=== PATIENT | female | born 1965 | race Caucasian/White ===

== ENCOUNTER 2020-10-24 08:00 | Outpatient (CLI) | payer OTHER, SELFPAY ==
[2020-10-24 12:34] VITALS: BMI 38.2
[2020-10-24 12:52] VITALS: BP 117/60; PULSE 72; RESP 14; TEMP 36.3; O2SAT 97
[2020-10-24] MEDS: FAMOTIDINE 20 MG TABLET PO (12:53)
[2020-10-24] MEDS: diphenhydrAMINE HCl CAP 25 MG CAPSULE PO (12:54)
[2020-10-24] MEDS: ACETAMINOPHEN 325 MG TABLET 650 MG PO (12:54)
--- NOTE | 2020-10-24 13:55 | PC.NURSE ---
Patient here for IV Casirivimab and IV Imdevimab infusion r/t + covid and met high risk criteria. Permit signed. Education on medication given. NO concerns. Premeds given and IV Casirivimab and Imdevimab administered SEE APR. Tolerated well. No S/SX of IV medication reaction noted or reported. Observed shortly afterwards. DC to home-save exit of hospital.
[2020-10-24 13:59] VITALS: BP 110/69; PULSE 68; RESP 16; TEMP 37.2; O2SAT 97
== END 2020-10-24 08:01 | disposition home or self-care (01) ==
PROVIDERS: PCP Internal Medicine; Visit Provider Internal Medicine
DX: Z23 Encounter for immunization (principal); U07.1 COVID-19
CPT/HCPCS: A9270; J7050; M0243

== ENCOUNTER 2023-03-28 15:45 | Outpatient (CLI) | payer MEDICARE, OTHER, SELFPAY ==
[2023-03-28 16:05] LABS: Basophils Absolute Auto 0.06 K/mm3 (0.00-0.10); Basophils Percent Auto 0.8 % (0.0-1.0); Eosinophils Absolute Auto 0.04 K/mm3 (0.02-0.50); Eosinophils Percent Auto 0.5 % (1.0-6.0); Hematocrit 39.8 % (35.0-49.0); Immature Granulocyte Absolute 0.05 K/mm3 (0.00-0.00); Immature Granulocyte Percent A 0.7 % (0.0-0.0); Lymphocytes Absolute Auto 1.03 K/mm3 (1.10-4.50); Lymphocytes Percent Auto 13.8 % (18.0-42.0); Mean Corpuscular HGB Conc 32.7 g/dL (32.0-36.0); Mean Corpuscular Hemoglobin 31.1 pg (27.0-31.0); Mean Corpuscular Volume 95.2 fL (78.0-102.0); Mean Platelet Volume 9.3 fl (9.2-11.8); Monocytes Absolute Auto 0.49 K/mm3 (0.10-0.90); Monocytes Percent Auto 6.6 % (2.0-11.0); Neutrophils Absolute Auto 5.8 K/mm3 (1.7-7.2); Neutrophils Percent Auto 77.6 % (50.0-70.0); Platelet Count Result 278 K/mm3 (150-420); Red Blood Count 4.18 M/mm3 (4.20-5.40); Red Cell Distribution Width 14.1 % (11.6-14.4); White Blood Count 7.4 K/mm3 (4.8-10.8)
[2023-03-28 16:27] LABS: Alanine Aminotransferase 35 U/L (14-59); Albumin Level 3.5 g/dL (3.4-5.0); Alkaline Phosphatase 78 U/L (46-116); Anion Gap 9 mmol/L (8-16); Aspartate Amino Transferase 16 U/L (15-37); Bilirubin,Total 0.3 mg/dL (0.00-1.00); Blood Urea Nitrogen 28 mg/dL (7-18); CRP 1.8 mg/dL (0.0-0.9); Calcium 9.1 mg/dL (8.5-10.1); Carbon Dioxide 31 mmol/L (21-32); Chloride 103 mmol/L (98-108); Creatine Kinase 50 U/L (26-192); Estimated Glomerular Filt Rate 47; Glucose 94 mg/dL (70-99); Osmolality Calculated 301 mOsm/kg (285-295); Phosphorus 3.4 mg/dL (2.6-4.7); Potassium 4.6 mmol/L (3.5-5.1); Sodium 143 mmol/L (136-145); Total Protein 6.7 g/dL (6.4-8.2)
== END 2023-03-28 15:46 | disposition home or self-care (01) ==
PROVIDERS: PCP Internal Medicine; Visit Provider Internal Medicine
DX: M06.00 Rheumatoid arthritis without rheumatoid factor, unspecified site (principal); M15.9 Polyosteoarthritis, unspecified
CPT/HCPCS: 36415; 80053; 82085; 82550; 83735; 84100; 85025; 86140

== ENCOUNTER 2024-11-28 11:00 | Outpatient (RCR) | payer MEDICARE, OTHER, SELFPAY ==
--- NOTE | 2024-10-15 12:13 | OPREHPOC ---
Outpatient Therapy Plan of Care This is a Multidisciplinary Plan of Care that may contain components documented by all disciplines (PT, OT, and ST.) PT Problem 1 PT Problem #1 Knowledge Deficit PT Goal 1 Goal / Goal Update Independnet and compliant with HEP. Target Visit 2 PT Problem 2 PT Problem #2 Pain PT Goal 1 Goal / Goal Update Pt to report no worse than 3/10 pain in the last week. Target Visit 12 PT Problem 3 PT Problem #3 Impaired Strength PT Goal 1 Goal / Goal Update Pt to improve lower abdominal strength to 4+/5. Pt to improve upper abdominal strength to 4-/5. Target Visit 12 PT Problem 4 PT Problem #4 Impaired Functional Mobility PT Goal 1 Goal / Goal Update Pt to report being able to sleep through the night without sleep medication. Target Visit 12
--- NOTE | 2024-10-15 12:13 | PTOPEVAL1 ---
Assessment and note entered by Marion Chau, PT Evaluation Information Assessment Status Evaluation Diagnosis Abdominal muscle weakness ICD-10 Condition Codes (PT) Pain in Thoracic Spine M54.6 Onset 09/25/2024 Subjective Information Pt reports she's been having a lot of pain, burning and tingling in her L side. She reports her pain isn't as bad as it previously was, and that she has previously been to the [facility] for the same symptoms but on her R side that was more severe and caused urinary incontinence. Pt reports she has scoliosis and thinks her pain is related to it, however she doesn't think she was born with scoliosis and instead developed it when she was . She notes worse L side pain in varying positions such as sitting and lying flat, and reports that when she lies flat her ribs stick out on the L side. She reports she got x-rays a couple years ago and pulls up a picture of one on her phone however there are no labels to determine if the x-ray was taken from the front or back to analyze the direction of her spinal curvature. Appears to be an S curve of the spine. She also notes being unable to sleep at night unless she takes a sleeping pill and also takes 4 ibuprofen both at morning and night. Reported Pain Level Pain Score 3: Self Report Assessment PT Clinical Summary Mrs. Louie is a 59 yo female who presents for skilled PT evaluation of L side rib and thoracic region pain. Her pain starts from her xyphoid process and wraps around her L side all the way to her thoracic vertebrae in the region of T6-9. Her pain appears to be neurogenic in nature and worsens with lying flat and sitting upright. Her pain is reproduced with palpation to the painful area and may be due to copmression of a thoracic nerve from pt's spinal curvature. Pt also demonstrates moderate abdominal mm weakness and impaired L spinal rotation and can benefit from skilled PT intervention to reduce pain and improve functional performance and sleep quality. Plan of Care Interventions Hot Pack/Cold Pack,Manual Therapy,Mechanical Traction,Neuro Re-education,Patient/Caregiver Education,Therapeutic Activities,Therapeutic Exercise,Self-Care/Home Management PT Services Indicated Yes Treatment Frequency and 2x/week for 12 visits Duration These treatments will address the objective and functional deficits as defined above. The patient will be advanced safely and appropriately in order for the patient to progress towards his/her prior level of function. Additional exercises will be introduced and as well as a comprehensive home exercise program upon discharge, if needed, ?to ensure carryover of functional gains achieved in the clinic. This treatment plan has been reviewed and agreement upon by the patient.
--- NOTE | 2024-10-30 07:53 | PCPTNOTE ---
Patient called & cancelled scheduled appointment this date due to being out of town. -Courtney Hernandez, PT
--- NOTE | 2024-11-28 11:54 | OPREHPOC ---
Outpatient Therapy Plan of Care This is a Multidisciplinary Plan of Care that may contain components documented by all disciplines (PT, OT, and ST.) PT Problem 1 PT Problem #1 Knowledge Deficit PT Goal 1 Goal / Goal Update Independnet and compliant with HEP. Target Visit 2 Progress Met PT Problem 2 PT Problem #2 Pain PT Goal 1 Goal / Goal Update Pt to report no worse than 3/10 pain in the last week. Target Visit 12 Progress Not Met PT Problem 3 PT Problem #3 Impaired Strength PT Goal 1 Goal / Goal Update Pt to improve lower abdominal strength to 4+/5. Pt to improve upper abdominal strength to 4-/5. Target Visit 12 Progress Not Met PT Problem 4 PT Problem #4 Impaired Functional Mobility PT Goal 1 Goal / Goal Update Pt to report being able to sleep through the night without sleep medication. Target Visit 12 Progress Not Met
--- NOTE | 2024-11-28 11:54 | PTOPDC ---
Assessment and note entered by Marion Chau, PT Evaluation Information Assessment Status Discharge Diagnosis Abdominal muscle weakness ICD-10 Condition Codes (PT) Pain in Thoracic Spine M54.6 Onset 09/25/2024 Subjective Information Morteza reports feeling about the same since starting PT. She notes temporary pain relief from modalities, manual therapy and kinesiotaping. She still continues to have nerve pain along her L lower back around her ribcage along with intercostal mm spasms and trigger points. She is getting an injection in her thoracic spine tomorrow and is also getting shoulder surgery next week, and in preparation for that she would like to discharge from therapy today. She plans to continue any exercises she's able to do at home post-surgery before starting PT again for her shoulder. Reported Pain Level Pain Score 6: Self Report Assessment PT Clinical Summary Mrs. Louie has attended 10 skilled PT visits for thoracic and lumbar region pain radiating from the spine around to her rib cage anteriorly. She has had some pain relief using therapeutic modalities, manual therapy and kinesiotaping but her objective findings remain unchanged overall. She is getting a thoracic spine injection tomorrow as an alternative method of pain relief, and she plans to continue her exercises and try kinesiotaping at home with the help of her . She has an upcoming shoulder surgery and will discharge this date pending that surgery. Plan of Care PT Services Indicated No
== END 2024-11-28 13:21 | disposition home or self-care (01) ==
LOC: CHSPT 11:00
PROVIDERS: PCP Nurse Practitioner Family; Visit Provider Nurse Practitioner Family
DX: M62.81 Muscle weakness (generalized) (principal); M54.6 Pain in thoracic spine
CPT/HCPCS: 97014; 97110; 97112; 97140; 97161; G0283